=== PATIENT | female | born 1955 | race Caucasian/White ===

== ENCOUNTER 2018-12-07 08:30 | Outpatient (CLI) | payer MEDICARE, BC, SELFPAY ==
[2018-12-07 09:53] LABS: COMMENT (LAB VIEW ONLY) 146.99 mg/dL; Microalb ug/mg Crea 11.3 ug/mg Cr
[2018-12-07 10:15] LABS: ALT 38 U/L (12-78); AST 29 U/L (15-37); Albumin 3.8 g/dL (3.4-5.0); Alkaline Phosphatase 130 U/L (46-116); Anion Gap 12.2 mmol/L (3-11); BUN 33 mg/dL (7-18); Bilirubin, Total 0.4 mg/dL (0.2-1.0); CO2 26.8 mmol/L (21.0-32.0); CREATININE 1.34 mg/dL (0.55-1.02); Calcium 9.7 mg/dL (8.5-10.1); Chloride 101 mmol/L (98-107); Cholesterol 137 mg/dL (50-200); Glucose 172 mg/dL (70-100); HDL Cholesterol 43 mg/dL (40-60); LDL CHOLESTEROL 70 mg/dL (<100); Potassium 4.1 mmol/L (3.5-5.1); Sodium 140 mmol/L (136-145); TSH (W/Ref FT4) 8.04 uIU/mL (0.358-3.74); Total Protein 7.5 g/dL (6.4-8.2); Triglyceride 115 mg/dL (30-150)
[2018-12-07 10:33] LABS: FREE T4 0.96 ng/dL (0.76-1.46)
== END 2018-12-07 08:50 ==
PROVIDERS: PCP Nurse Practitioner Family; Visit Provider Nurse Practitioner Family
DX: E11.9 Type 2 diabetes mellitus without complications (principal); E78.5 Hyperlipidemia, unspecified; E03.9 Hypothyroidism, unspecified
CPT/HCPCS: 36415; 80053; 80061; 83721; 82043; 82570; 83036; 84439; 84443

== ENCOUNTER 2020-05-19 10:17 | Outpatient (REF) | payer MEDICARE, BC, SELFPAY ==
[2020-05-22 10:13] LABS: COMMENT (LAB VIEW ONLY) 166.85 mg/dL; Microalb ug/mg Crea 28.6 ug/mg Cr
== END 2020-05-19 10:37 ==
LOC: LBO 10:17
PROVIDERS: PCP Nurse Practitioner Family; Visit Provider Nurse Practitioner Family
DX: E11.22 Type 2 diabetes mellitus with diabetic chronic kidney disease (principal); Z79.4 Long term (current) use of insulin
CPT/HCPCS: 82043; 82570

== ENCOUNTER 2020-05-26 03:49 | Outpatient (CLI) | payer MEDICARE, BC, SELFPAY ==
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
== END 2020-05-26 04:09 ==
PROVIDERS: PCP Nurse Practitioner Family; Visit Provider Nurse Practitioner Family
DX: M25.562 Pain in left knee (principal); M17.12 Unilateral primary osteoarthritis, left knee; M89.8X5 Other specified disorders of bone, thigh; Z87.828 Personal history of other (healed) physical injury and trauma
CPT/HCPCS: 73562

== ENCOUNTER 2020-05-29 02:23 | Outpatient (CLI) | payer MEDICARE, BC, SELFPAY ==
[2020-05-29 10:12] LABS: ALT 28 U/L (14-59); AST 22 U/L (15-37); Albumin 3.8 g/dL (3.4-5.0); Alkaline Phosphatase 107 U/L (46-116); Anion Gap 10.5 mmol/L (3-11); BUN 26 mg/dL (7-18); Bilirubin, Total 0.4 mg/dL (0.2-1.0); CO2 28.5 mmol/L (21.0-32.0); CREATININE 1.42 mg/dL (0.55-1.02); Calcium 9.4 mg/dL (8.5-10.1); Calculated LDL 72 mg/dL (<100); Chloride 103 mmol/L (98-107); Cholesterol 136 mg/dL (<200); Estimated GFR 37.01 (mL/min/1.73m2); Glucose 106 mg/dL (74-106); HDL Cholesterol 47 mg/dL (40-60); Potassium 4.2 mmol/L (3.5-5.1); Sodium 142 mmol/L (136-145); TSH (W/Ref FT4) 5.18 uIU/mL (0.36-3.74); Triglyceride 88 mg/dL (<150)
[2020-05-29 10:30] LABS: FREE T4 0.88 ng/dL (0.76-1.46)
== END 2020-05-29 02:43 ==
PROVIDERS: PCP Nurse Practitioner Family; Visit Provider Nurse Practitioner Family
DX: E11.22 Type 2 diabetes mellitus with diabetic chronic kidney disease (principal); Z79.4 Long term (current) use of insulin; E03.9 Hypothyroidism, unspecified
CPT/HCPCS: 36415; 80053; 80061; 84439; 84443

== ENCOUNTER 2020-06-07 01:47 | Outpatient (CLI) | payer MEDICARE, BC, SELFPAY ==
--- NOTE | 2020-06-07 06:15 | DI.MRI_ITS ---
EXAM: MR LOWER EXTREMITY LT WO CLINICAL HISTORY: Further eval sclerotic lesion distal femur,M89.9. TECHNIQUE: Multiplanar multisequence MRI was performed. No IV gadolinium was administered due to de creased GFR. COMPARISON: CR XR KNEE LT 3V AP,LAT,SAVANNAH from 05/26/2020 FINDINGS: Plain films show a sclerotic lesion in the medial femoral condyle. On MRI the lesion seen on plain film a is of cortical signal intensity, consistent with a bone island . There is a moderate size joint effusion. There is a small Watkins's cyst. Several loose bodies are no cindy. There are severe degenerative changes of the lateral femoral tibial joint with prominent spurri ng, joint space narrowing and cartilage thinning extending down to bone. The cruciate and collateral ligaments and extensor mechanism appear intact. There degenerative signal changes in the medial men iscus. The lateral meniscus is severely peripherally displaced and not well seen, consistent with se shauna degeneration. IMPRESSION: Sclerotic lesion in the medial femoral condyle is consistent with a bone island. There is severe de generative changes of the medial femoral tibial joint. Loose bodies are noted in the joint effusion. DATA REPOSITORY:
== END 2020-06-07 02:07 ==
PROVIDERS: PCP Nurse Practitioner Family; Visit Provider Nurse Practitioner Family
DX: M89.8X5 Other specified disorders of bone, thigh (principal)
CPT/HCPCS: 73718; 82565

== ENCOUNTER → 2020-06-19 13:22 | Outpatient (BNVA) | payer MEDICARE, BC, SELFPAY | PROVIDERS: PCP Nurse Practitioner Family; Referring Provider Nurse Practitioner Family; Visit Provider Student in an Organized Health Care Education/Training Program | DX: M17.12 Unilateral primary osteoarthritis, left knee (principal); M89.9 Disorder of bone, unspecified; I10 Essential (primary) hypertension; E11.9 Type 2 diabetes mellitus without complications; Z79.4 Long term (current) use of insulin | CPT/HCPCS: 20610; 99203; J1040 ==

== ENCOUNTER 2020-09-28 13:56 | Outpatient (CLI) | payer MEDICARE, BC, SELFPAY ==
--- NOTE | 2020-09-28 13:45 | DI.RAD_ITS ---
EXAM: XR STANDING ALIGNMENT and XR knee LT 1 V CLINICAL HISTORY: pre op TKA. TECHNIQUE: 2D digital imaging was performed. COMPARISON: CR XR KNEE LT 3V AP,LAT,SAVANNAH from 05/26/2020 FINDINGS: The hips are well maintained. The right knee is well maintained. In the left knee, there is joint s pace narrowing and periarticular spurring particularly in the lateral femoral tibial and patellofemor al joints. The sclerotic focus in the medial femoral condyle is unchanged. The ankles are well main tained. No significant leg length discrepancy is noted. The right lower extremity measures 90.6 cm. The left lower extremity measures 90.2 cm. IMPRESSION: 1. Moderately severe degenerative changes in the left knee. 2. No significant leg length discrepancy. DATA REPOSITORY: RADIATION DOSE DELIVERED:
== END 2020-09-28 14:16 ==
PROVIDERS: PCP Nurse Practitioner Family; Referring Provider Nurse Practitioner Family; Visit Provider Physician Assistant
DX: M17.12 Unilateral primary osteoarthritis, left knee (principal)
CPT/HCPCS: 73560; 77073

== ENCOUNTER 2020-10-06 03:38 | Outpatient (CLI) | payer MEDICARE, BC, SELFPAY ==
[2020-10-06 10:29] LABS: HCT 34.4 % (36.0-46.0); MCH 29.3 pg (27.0-33.0); MCV 91.5 fL (80-95); MPV 9.1 fL (8.0-11.0); Platelet Count 332 10^3/uL (130-400); RBC 3.76 10^6/uL (3.93-5.22); RDW 12.8 % (11.7-14.6); RDW-SD 42.5 fL
[2020-10-06 10:36] LABS: Hemoglobin A1C 6.5 % (<5.7)
[2020-10-06 11:31] LABS: Anion Gap 3.3 mmol/L (3-11); BUN 35 mg/dL (7-18); CO2 33.7 mmol/L (21.0-32.0); CREATININE 1.87 mg/dL (0.55-1.02); Calcium 8.8 mg/dL (8.5-10.1); Chloride 104 mmol/L (98-107); Estimated GFR 26.86 (mL/min/1.73m2); Glucose 121 mg/dL (74-106); Potassium 4.1 mmol/L (3.5-5.1); Sodium 141 mmol/L (136-145)
[2020-10-07 12:01] LABS: SARS-CoV-2 RNA Source Nasal/Nares
[2020-10-07 12:02] LABS: SARS-CoV-2 RNA Not Detected (NotDetected)
== END 2020-10-06 03:58 ==
PROVIDERS: PCP Nurse Practitioner Family; Visit Provider Student in an Organized Health Care Education/Training Program
DX: M25.562 Pain in left knee (principal); M17.12 Unilateral primary osteoarthritis, left knee; Z11.59 Encounter for screening for other viral diseases; Z01.818 Encounter for other preprocedural examination; Z01.812 Encounter for preprocedural laboratory examination
CPT/HCPCS: 36415; 80048; 85027; U0003; 83036

== ENCOUNTER 2020-10-11 06:03 | Day surgery (SDC) | payer MEDICARE, BC, SELFPAY ==
[2020-10-11] VITALS (10 sets, daily range): BP systolic 107–166; BP diastolic 55–83; PULSE 64–84; RESP 15–18; TEMP 35.9–36.6; O2SAT 97–99
[2020-10-11] MEDS: Celecoxib 200 MG CAP 400 MG PO (06:31)
[2020-10-11] MEDS: Gabapentin 300 MG CAP PO (06:31)
[2020-10-11] MEDS: Acetaminophen 500 MG TAB 1000 MG PO (06:31)
[2020-10-11] MEDS: Lactated Ringers 1,000 ML 80 ML IV (06:32)
[2020-10-11] MEDS: Bupivacaine 0.25% Pres-Free 30 ML VIAL ×2 (07:37→08:31)
[2020-10-11] MEDS: ceFAZolin 2 GM/50 ML BAG IVPB (07:57)
[2020-10-11] MEDS: Ketorolac 30 MG/ML VIAL (08:33)
[2020-10-11] MEDS: Normal Saline 20 ML VIAL (08:34)
--- NOTE | 2020-10-11 09:55 | DSE_ITS ---
Date of service: 10/11/20 Time of Service: 11:51 DS: Diagnosis Discharge Diagnosis (1) Left knee DJD: Status: Chronic Discharge Plan Disposition Patient Disposition: HOME Condition: Good Discharge Details Reason For Visit: L TKA Admit Date/Time: 10/11/20 06:03 Admit Provider: Milan Maloney Attending Provider: Milan Maloney Primary Care Provider: Nicol Brunner [facility] Course Hospital Course: Lacey was admitted to the day surgery unit following the procedure. The surgery was tolerated well without any notable medical, surgical, or anesthetic complications. Mobilization began postoperatively. She was voiding spontaneously. Vitals were stable. Physical therapy worked with the patient and was cleared for discharge home. No acute medical issues. Pain was controlled on oral regimen. Home Meds and New Rx's Prescriptions: New celecoxib [Celebrex] 200 mg capsule 200 mg PO BID Qty: 60 RF: 0 aspirin 81 mg tablet,delayed release (DR/EC) 81 mg PO BID Qty: 60 RF: 0 acetaminophen [Tylenol Extra Strength] 500 mg tablet 500 mg PO Q6H PRNQty: 90 RF: 0 pantoprazole [Protonix] 40 mg tablet,delayed release (DR/EC) 40 mg PO DAILY Qty: 30 RF: 0 oxycodone 5 mg tablet 5 mg PO Q4H PRNQty: 18 RF: 0 docusate sodium [Colace] 100 mg capsule 100 mg PO BID PRNQty: 10 RF: 0 Continued multivitamin [Daily Vitamin] 1 EACH tablet 1 ea PO DAILY RF: 0 calcium carbonate [Calcium 600] 600 MG tablet 600 mg PO DAILY RF: 0 Lantus Solostar U-100 Insulin 100 unit/mL (3 mL) insulin pen 22 unit Sub-Q QAM Qty: 15 RF: 3 levothyroxine 50 mcg tablet 50 mcg PO DAILY Qty: 90 RF: 3 metformin 1,000 mg tablet 1,000 mg PO BID Qty: 180 RF: 3 atorvastatin 40 mg tablet 40 mg PO DAILY Qty: 90 RF: 3 paroxetine HCl 40 mg tablet 40 mg PO DAILY Qty: 90 RF: 3 Januvia 50 mg tablet 50 mg PO HS RF: 0 lisinopril-hydrochlorothiazide 20-12.5 mg tablet 1 tab PO BID RF: 0 Discontinued aspirin [Aspir-81] 81 MG tablet,delayed release (DR/EC) 81 mg PO DAILY RF: 0 No Action (DME) Blood Glucose Test Strip See Dose Instructions .ROUTE .MEDSUPPLY Qty: 100 RF: 3 (DME) pen needle, diabetic [Pen Needle] 31 gauge x 5/16 needle 1 ea Miscellaneous DAILY Qty: 100 RF: 3 (DME) lancets [OneTouch Delica Lancets] 33 gauge misc 1 ea Miscellaneous DAILY Qty: 100 RF: 3 Discharge Instructions Additional Instructions: Total Knee Discharge Instructions Activity: The most important activity is to walk. You should try to take short walks a few times a day. It is important that when resting you work on keeping the knee straight. Avoid putting a pillow behind the knee as this will encourage flexion. Work on range of motion exercises as provided by Physical Therapy. - Start outpatient physical therapy within 2 weeks. - You should wear the SAMMIE hose on both legs for 2 weeks. Dressing: Keep the surgical dressing in place for at least one week. After the first week it may be removed and replace with light gauze and tape or nothing. It may get wet after 3 days but avoid soaking the dressing. If it gets wet, just lightly pat dry. Medications: - You should take Tylenol and anti-inflammatory Celebrex as your primary pain control medications. If the Celebrex is too expensive or not covered, please call the office for another alternative (Advil/Ibuprofen or Naproxen/Aleve) - You have been prescribed a stronger pain medication Oxycodone for breakthrough pain, take as needed as prescribed. - You have also been prescribed a stomach acid reduction agent Pantoprozole to help reduce stomach acid and reflux. - You will be taking Aspirin 81mg twice a day for DVT prevention unless instructed otherwise. - If you have constipation you should take Colace or Miralax (both [id number]). Colace has been called in. It takes most people 3-4 days to have a bowel movement. Follow-up: 2 weeks If you have any acute concerns or questions, please do not hesitate to contact the office at [phone]. You may contact Dr. Maloney with any questions after hours through the hospital at [phone] or on his cell phone at [phone]. Stand Alone Forms: Anes.Nerve Block Instructions, Press Ganey (DSU) Referrals: Milan Maloney MD [ [facility] STAFF PHYSICIAN] - Activity:: Activity as Tolerated Equipment/Supplies:: Walker Diet:: As Tolerated Discharge Orders Discharge Orders: Discharge Order (Routine); Ordered 10/11/20 Ordered By: Milan Maloney DS: Summary Status at Discharge Functional status at discharge: independent ambulation Overall status at discharge: patient is progressing back to baseline Mental Status: mental status grossly normal Speech and Movement: speech and movement normal Mood: congruent mood Affect: normal affect Exam Psych Mental Status: mental status grossly normal Speech and Movement: speech and movement normal Mood: congruent mood Affect: normal affect DS: Data Vitals/I&O Vitals and I&O: Vital Signs Temperature 36.6 C 10/11/20 06:26 Pulse 84 10/11/20 06:26 Respiratory Rate 18 10/11/20 06:26 Blood Pressure 166/83 H 10/11/20 06:26 Pulse Oximetry 98 10/11/20 06:26 Oxygen Delivery Method Room Air 10/11/20 06:26 Oxygen Flow Rate 0 10/11/20 06:26 Intake & Output 10/10/20 10/10/20 10/11/20 11:59 23:59 11:59 Intake Total 670 / 670 Output Total 100 / 100 Balance 570 / 570 Weight 86.183 kg 87.2 kg Intake: IV 670 / 670 Output: Estimated Blood Loss 100 / 100 [facility] Medical History Adenoma of large intestine (09/29/12) 12/13/15 colo with fragments of tubular adenoma Adult BMI > 30 Anxiety Atypical squamous cells of undetermined significance (ASC-US) on cervical Pap smear (08/23/08) Chronic kidney disease Diabetes mellitus (04/19/13) 03/30/2018 No retinopathy Diabetic neuropathy associated with type 2 diabetes mellitus Essential hypertension (04/19/13) White-coat HTN Heart murmur (08/09/98) systolic Heart murmur, systolic HTN (hypertension) Hyperlipidemia (09/29/12) 11/2018 labs: adequate response in the lipid panel, continue moderate intensity statin therapy Left knee DJD injection: 06/19/20 Postmenopausal LMP ~47 y/o 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 Personal history of malignant neoplasm Brother No problems noted. Brother No problems noted. Social History Smoking/Tobacco Use Status: Never Smoking risk assessment performed?: Yes Alcohol Intake: current Alcohol Intake frequency: holidays/special occasions only Drug use: Never Caregiver/Support person: No Household members: spouse Number of Children: 2 Communication Needs: None current occupation: Retired Current gender identity: female What type of physical activity do you participate in: walking Duration: 45-60 minutes/day Frequency: 1-2 times per week Seatbelt use: always Water heater temp set <120 deg: Yes Working smoke detector in home: Yes Fire extinguisher in home: Yes Carbon monox detector in home: Yes
--- NOTE | 2020-10-11 12:35 | IN_ITS ---
Date of service: 10/11/20 Time of Service: 12:35 PT Notes Visit Reasons: L TKA Physical Therapy Inpatient Initial Evaluation Date: 10/11/2020 Referring Doctor: BRET Mccauley PT Orders: PT CONSULT: Status post Ortho surgery Precautions: Fall. Standard. WBAT on left LE. Patient Profile/Admitting Diagnosis: Lacey is a 65-year-old female with primary unilateral osteoarthritis of the left knee and is status post left total knee arthroplasty on postoperative day 0. PMHX: Medical History Adenoma of large intestine (09/29/12) 12/13/15 colo with fragments of tubular adenoma Adult BMI > 30 Anxiety Atypical squamous cells of undetermined significance (ASC-US) on cervical Pap smear (08/23/08) Chronic kidney disease Diabetes mellitus (04/19/13) 03/30/2018 No retinopathy Diabetic neuropathy associated with type 2 diabetes mellitus Essential hypertension (04/19/13) White-coat HTN Heart murmur (08/09/98) systolic Heart murmur, systolic HTN (hypertension) Hyperlipidemia (09/29/12) 11/2018 labs: adequate response in the lipid panel, continue moderate intensity statin therapy Left knee DJD injection: 06/19/20 Postmenopausal LMP ~47 y/o 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 Independent with all aspects of ADLs without the use of an assistive ambulatory device nor adaptive equipment prior to surgery. Ports no falls in the past 12 months. Equipment Owned/DME: None Subjective: Agreeable to PT consult. Reports no pain in the left knee but did complain of a stretching sensation in the back of the knee during mobility assessment. Denies headache, chest pain, and dizziness throughout consult. Objective: General Observation: Nurse Steffen present throughout session. Nurse Ferris assisted during stairs training. Blu wraps on left LE. Cryo/Cuff on left LE. Anti-thromboembolic pumps on right leg. Mental Status: Alert and oriented x4 Pain: 0/10 in the left knee Vital Signs: Within normal limits as closely monitored by nurse Bourne before during and after PT session ROM: Right Upper Extremity: Shoulder Flexion WFL. Shoulder abduction WFL. Elbow flexion WFL. Wrist flexion WFL. Opening and closing of hand WFL. Left Upper Extremity: Shoulder Flexion WFL. Shoulder abduction WFL. Elbow flexion WFL. Wrist flexion WFL. Opening and closing of hand WFL. Right Lower Extremity: Hip flexion WFL. Hip abduction WFL. Knee flexion WFL. Ankle dorsiflexion WFL. Ankle plantarflexion WFL. Left Lower Extremity: Hip flexion WFL. Hip abduction WFL. Knee flexion 0 to 100 degrees. Ankle dorsiflexion WFL. Ankle plantarflexion WFL. Strength: Right Upper Extremity: Shoulder flexors 5/5. Shoulder abductors 5/5. Elbow flexors 5/5. Elbow extensors 5/5. Fire Investigation Lieutenant strong. Left Upper Extremity: Shoulder flexors 5/5. Shoulder abductors 5/5. Elbow flexors 5/5. Elbow extensors 5/5. Fire Investigation Lieutenant strong. Right Lower Extremity: Hip flexors 5/5. Hip abductors 5/5. Knee flexors 5/5. Knee extensors 5/5. Ankle dorsiflexors 5/5. Ankle plantarflexors 5/5. Left Lower Extremity:Hip flexors 4/5. Hip abductors 4/5. Knee flexors 3-/5. Knee extensors 4-/5. Ankle dorsiflexors 5/5. Ankle plantarflexors 5/5. Sensation: Intact as to pain and pressure on bilateral lower extremities. Bed Mobility/Transfers: Rolling independent Supine to sit independent Sit to supine independent Sit to stand contact-guard assist Stand to sit contact-guard assist Bed to chair standby assist Chair to bed standby assist Gait: Instructed on safe strategies for level surface ambulation of 100 feet + 75 feet using the front wheeled walker with standby assist of PT and distant supervision of nurse Bourne. Step through reciprocal gait pattern. Kiera decreased. Also assisted and verbally cued on safe strategies for stair negotiation of 12 x 4 inch steps while holding onto 1 rail and with contact- guard assist of PT and standby assist of kenya Bourne and Josy. THERA EX: Training provided for correct performance of seated level active range of motion exercises as written in exercise flowsheet to minimize pain, stiffness, and swelling for the first week or so until orthopedic follow-up. Balance: Static Sitting: Normal Dynamic Sitting: Normal Static Standing: Fair fair Dynamic Standing: Special Tests: Mobility Limitations Standardized Measure [facility] AM-PAC 6 clicks Basic Mobility Inpatient Short Form: Raw Score: 23 CMS Score: 11% deficit Informed Consent/Education: Patient instructed in purpose of PT consult and plan of care. Assessment: Lacey requires the use of front wheeled walker to maximize independence and reduce fall risk at home. She goes home today after she is cleared by orthopedic surgeon. She will have the support of her as she recovers. She has good understanding of seated level exercises that she can to initially at home for the first week or so. She will benefit from outpatient PT services in order to facilitate return to premorbid independent level. Patient presents with clinical signs and symptoms consistent with current/admitting diagnoses that have resulted to mobility limitations, gait instability, generalized weakness, and impairment of motor control as demonstrated by the following impairment level findings: 1. Decreased strength to left knee major muscle groups 2. Impaired standing balance 3. Impaired activity tolerance 4. Limitation of joint range of motion in left knee Impairments are contributing to the following functional limitations: 1. Inability to safely ambulate without assistive device 2. Increase completion time for mobility ADL performance 3. Increased fall risk 4. Inability to negotiate steps alone safely Patient is assessed as a [id number] moderate complexity based on the following: History: 65-year-old female with impairment level findings, functional limitations, and past medical history as indicated above Examination: Demonstrable impairment in strength, balance, and mobility level with underlying impairments and functional limitations as documented above Presentation:Evolving Decision Makin moderate complexity Goals: N/A. PT eval and 1 treatment session only for functional mobility training and HEP instruction. Plan of Care/Treatment Plan: N/A. PT eval and 1 treatment session only for functional mobility training and HEP instruction. DISCHARGE RECOMMENDATIONS: Home when medically cleared by orthopedic surgeon. Outpatient PT in 2 weeks in order to facilitate return to premorbid independent level. TREATMENT CODE/TIME: 36946 x 20 minutes, 20607 x 25 minutes beginning at 12:35 PM. Thank you for the opportunity to participate in the care of this patient. Tracee Pizarro PT, DPT, CLT [facility] [place], [place]
--- NOTE | 2020-10-11 14:19 | W.PM.OP ---
Date of service: 10/11/20 Time of Service: 09:37 Operative Note Operative Note DATE OF PROCEDURE: 10/11/20 PRE-OP DIAGNOSIS: Left Knee Osteoarthritis with Valgus Deformity POST-OP DIAGNOSIS: same PROCEDURE: Left Total Knee Replacement with Intraoperative Navigation SURGEON: Milan Maloney DESIGN MAINTENANCE ENGINEER: Chen Dietrich ANESTHESIA: regional and spinal ESTIMATED BLOOD LOSS: 150 PATHOLOGY: none sent TOURNIQUET TIME: 0 COMPLICATIONS: None Patient was transported to: PACU Patient's condition: stable Implants: 1. Depuy Attune Cementless Posterior Stabilized Femoral Component, Size 5 2. Depuy Attune Cementless Rotating Platform Tibial Component, Size 5 3. Depuy Attune 5x7mm CR/PS Poly 4. Depuy Attune Patellar Component, Size 38 Indications: I have seen Lacey in clinic for symptoms of LEFT knee arthritis, confirmed with radiographic findings. Lacey has exhausted nonoperative methods and was having significant limitations in daily function and desired better function and less pain. I discussed the technical details of a knee replacement. I explained the risks of the procedure to include, but not limited to, bleeding, infection, pain, stiffness, fracture, damage to nerves and vessels, damage to muscles and tendons, loosening, need for repeat procedure, blood clot and cardiopulmonary demise. Despite these risks, she elected to proceed. Findings: There was significant signs of arthritis throughout the knee involving all 3 compartments, but worse laterally. Procedure Description: Lacey was greeted in the preoperative holding area where the correct side was identified and marked. The consent was reviewed with the patient and signed. The history and physical was updated. All questions were answered. Preoperative mediacations were administered: Acetaminophen 1000mg, Celebrex 400mg, and Gabapentin 300mg. An adductor canal block was then administered by the anesthesia team in the PACU. She was taken back to the operating room. A spinal anesthestic was then administered. The patient was placed into the supine position on the operating room table. A nonsterile tourniquet was placed high onto the leg. Posts were placed for positioning during the procedure. All bony prominences were well padded. Prophylactic antibiotics in the form of Cefazolin were administered. 1g of Tranxemic Acid was given intravenously within 30 minutes of incision. The left leg was then prepped with Chloraprep and draped in a standard fashion with impervious stockinette. A second prep with Chloraprep was performed prior to application of Iodine impregnated skin protection. A timeout to confirm correct identity, side and site, procedure, allergies, anesthesia, and medical concerns was performed. With the knee in some flexion, a midline incision was made overlying the knee. Full thickness skin flaps were raised once the extensor mechanism was encountered. These were raised medially and laterally. Any bleeding was controlled with electrocautery. Once the extensor mechanism was fully exposed, a medial parapatellar arthrotomy was performed in a flexed position. All bleeding from the arthrotomy and the geniculate arteries was coagulated. A medial subperiosteal peel was performed with electrocautery to the midcoronal plane. The fat pad was removed while keeping the patellar tendon protected. The anterior distal femur synovium was removed for later visualization. The ACL and PCL were resected and the anterior horn of the lateral meniscus was transected. The knee was then flexed with the patella everted. Large osteophytes from the tibia were removed. Large osteophytes from the femur were removed. There was some hypoplasia of the lateral femoral condyle and any remnant cartilage of the medial femoral condyle was removed for appropriate thickness. A single starting pin was then placed 1cm anterior to the PCL insertion and the notch in the direction of the femoral head. The OrthoAlign device was applied over the pin. It was oriented to be in line with the epicondylar axis and the trochlear groove. It was then pinned into place. The navigation computer was then turned on and calibrated. The distal femur cut was set at 0 degrees varus/valgus and 2.5 degrees flexion. The distal femur cutting guide then was positioned for a 9mm cut. The distal femur was cut with an oscillating saw while protecting the soft tissues. The tibia was then addressed. The OrthoAlign device was placed over the tibial tubercle and medial tibia and secured into position. Once again, OrthoAlign was calibrated and then set for a 0 degree varus/valgus cut and 3 degrees of posterior slope. With this locked into position, the cut thickness stylus was used to assess cut thickness. The lateral side, most involved side, was set for a 4mm cut. This was then held in position and pinned into place with 2 additional pins and a cross pin for stability. The medial and lateral collateral ligaments were protected and the cut was performed. With this completed, it was assessed and noted to be of appropriate dimensions. The guide and OrthoAlign was removed. A spacer block was inserted and the knee was brought into extension. The 7mm spacer block provided full extension, without hyperextension and with stability of both the medial and lateral collateral ligaments was assessed. The pins from the femur and the tibia were then removed. The distal femur was then sized. The anterior stylus was placed onto the lateral ridge of the anterior femur. This indicated a size 5 femur. The external rotation of the guide was adjusted to 3 degrees to match the epicondylar axis, perpendicular to Stafford?s line. The 4-in-1 cutting guide was the placed. The posterior medial femur cut was evaluated and appeared of good thickness. The spacer block was inserted underneath the cutting guide and stability was confirmed in 90 degrees of flexion. An kolby wing was used to confirm appropriate position of the anterior cut to avoid notching. This cutting guide was ensured to be flush on the cut surface and then pinned into place with headed pins. While protecting the soft tissues, quad tendon, and collateral ligaments, the anterior and posterior cuts were performed with a saw. The central two pins were removed and the posterior and anterior chamfers were cut next. The notch-cutting guide was placed. This was pinned to lateralize the femoral component as much as possible while keeping it flush on the cut surface. This was then pinned into position. A reciprocating saw was used to make the notch cut. A rasp smoothed the cut surfaces. The medial and lateral menisci were removed. A trial femoral component was then inserted, impacted down to the cut surfaces, and the lug holes were drilled. A provisional trial tibial component was placed and the knee was brought through range of motion. There was noted to be excellent extension and flexion. There was no significant instability. The patella was tracking without thumbs. A size 7mm polyethylene component provided the best range of motion and stability with less than 2mm gapping with medial and lateral stress and full extension without significant hyperextension. The tibial cut surface was fully exposed. The tibia was then sized as a 5. The tibia had been previously marked during trialing to correspond to the center of the tibial component to help with rotation. The trial was aligned to this kenyatta, approximately rotated to the medial 1/3rd of the tibial tubercle. The trial was pinned into place. The tibia was prepared with a reamer and a keel punch and lug holes. The knee was then brought into extension and the patella was measured as 25mm. Using the patellar clamp and cut guide, this was resected to a flat surface with at least 13mm of thickness remaining. The size 38 patella fit the best. This was oriented and then clamped into position. The lugs were drilled. The trial components were removed. The final components were opened on the back table. The periosteal and capsular tissues, especially posteriorly, around the knee were then systematically injected with a periarticular cocktail consisting of 50cc 0.25% Marcaine, 30mg Ketorolac, 20cc of Exparal and 50cc of injectable saline. The knee was thoroughly irrigated with a pulse lavage and dried. Irrisept was also used to irrigate the tissues. On the back table, with the implants opened, the cement was mixed. One batches of high viscosity cement were prepared with vacuum assistance. After the cement was ready a small amount was placed on the cut surface of the patella and the patellar button was clamped into position and held. During this process attention was turned to the gutters of the knee and for all interfaces for any excess cement. While the cement was hardening, the cementless knee components were placed. Starting with the tibial component, the tibia was subluxed anteriorly and the lug holes of the component were lined up. The tibia was then impacted with an impactor and mallet until the tibial component was in contact with the tibia. Then, the femoral component was inserted. The lug holes were aligned and the component was impacted into position. The final polyethylene was inserted. The knee was irrigated with Irrisept chlorhexadine solution. This was allowed to sit in the knee for 3 minutes. After the cement had finally cured, approximately 15min, the clamp was removed from the patella and the knee was taken through range of motion. The patella was tracking with a no-thumbs technique. The capsule was then reapproximated with a No. 1 Vicryl at multiple locations. The capsule was finally closed with a No. 2 Stratafix, barbed suture. The tourniquet was then released and the arthrotomy appeared watertight without significant bleeding. The second dosing of 1g TXA was started. Deep tissues were then reapproximated with 0 Vicryl and 2-0 Vicryl. The skin was closed with a running 3-0 Monocryl in a subcuticular fashion. This was reinforced with skin glue. A Mepilex silver dressing was applied along with a [id number] SCARLETT wrap. A CryoCuff was applied. Lacey was transferred to the hospital bed without difficulty an suffering no apparent complication. Lacey has a good prognosis. Physical therapy will start today and without restrictions, weight-bearing as tolerated. Aspirin 81mg BID will be used for DVT prophylaxis.
== END 2020-10-11 14:04 | disposition home or self-care (01) ==
LOC: PDS 07:42 → DSU 10-13 12:39
PROVIDERS: PCP Nurse Practitioner Family; Visit Provider Student in an Organized Health Care Education/Training Program
PROC: (CPT 27447; principal; 2020-10-11 07:45)
DX: M17.12 Unilateral primary osteoarthritis, left knee (principal); M21.062 Valgus deformity, not elsewhere classified, left knee; Z96.652 Presence of left artificial knee joint; G89.18 Other acute postprocedural pain; E11.9 Type 2 diabetes mellitus without complications; I10 Essential (primary) hypertension
CPT/HCPCS: 27447; 20985; C1776; 76942; 97162; 97530; NC; J0690; J1885; J2250; J2405

== ENCOUNTER 2020-10-26 09:10 | Outpatient (CLI) | payer MEDICARE, BC, SELFPAY ==
--- NOTE | 2020-10-26 08:45 | DI.RAD_ITS ---
EXAM: XR STANDING ALIGNMENT CLINICAL HISTORY: 1ST POST OP L TKA. TECHNIQUE: 2D digital imaging was performed. COMPARISON: 09/28/2020 FINDINGS: There has been interval surgery with placement of a left knee prosthesis. This appears satisfactory. Minimal degenerative changes in the opposite-right knee noted. Hips appear unremarkable with the e xception of a calcific density lateral to the greater trochanter of the left hip consistent with calc ific bursitis/tendinitis. Ankles appear unremarkable. IMPRESSION: Left knee prosthesis. Calcific tendinitis-left hip. DATA REPOSITORY: RADIATION DOSE DELIVERED:
--- NOTE | 2020-10-26 08:45 | DI.RAD_ITS ---
EXAM: XR KNEE LT 1V CLINICAL HISTORY: 1st post po L TKA. TECHNIQUE: 2D digital imaging was performed. COMPARISON: MR MR LOWER EXTREMITY LT WO from 06/07/2020 CR XR KNEE LT 1V from 09/28/2020 FINDINGS: Single lateral view of the left knee compared to 09 28 There is been interval arthroplasty plus resurfacing of the patella. On this single view there appea rs to be satisfactory position of the components of the prosthesis with no fracture or loosening evid ent. Sclerotic bone density is noted at the level of the distal femoral metaphysis which is unchange d from the prior study in shown to have benign appearance on MRI scan 06/07/2020 (bone island). IMPRESSION: Satisfactory appearance DATA REPOSITORY: RADIATION DOSE DELIVERED:
== END 2020-10-26 09:30 ==
PROVIDERS: PCP Nurse Practitioner Family; Referring Provider Nurse Practitioner Family; Visit Provider Physician Assistant Surgical
DX: Z96.652 Presence of left artificial knee joint (principal); M65.28 Calcific tendinitis, other site
CPT/HCPCS: 73560; 77073

== ENCOUNTER → 2020-11-23 11:01 | Outpatient (BNVA) | payer MEDICARE, BC, SELFPAY | PROVIDERS: PCP Nurse Practitioner Family; Referring Provider Nurse Practitioner Family; Visit Provider Student in an Organized Health Care Education/Training Program | DX: Z96.652 Presence of left artificial knee joint (principal); Z47.1 Aftercare following joint replacement surgery ==

== ENCOUNTER → 2021-01-04 09:36 | Outpatient (BNVA) | payer MEDICARE, BC, SELFPAY | PROVIDERS: PCP Nurse Practitioner Family; Referring Provider Nurse Practitioner Family; Visit Provider Student in an Organized Health Care Education/Training Program | DX: Z47.1 Aftercare following joint replacement surgery (principal); Z96.652 Presence of left artificial knee joint ==

== ENCOUNTER 2021-05-21 03:27 | Outpatient (CLI) | payer MEDICARE, BC, SELFPAY ==
[2021-05-21 08:35] LABS: Abs Immature Grans 0.04 10^3/uL (0.0-0.06); Absolute Basophil Count 0.06 10^3/uL (0.0-0.2); Absolute Eosinophil Count 0.32 10^3/uL (0.0-0.7); Absolute Lymphocyte Count 1.76 10^3/uL (1.2-3.4); Absolute Monocyte Count 0.74 10^3/uL (0.1-0.8); Absolute Neutrophil Count 5.98 10^3/uL (1.2-6.7); Basophils % 0.7; Eosinophils % 3.6; HCT 37.6 % (36.0-46.0); HGB 12.2 g/dL (11.2-15.7); Immature Grans % 0.4; Lymphocytes % 19.8; MCH 30.6 pg (27.0-33.0); MCHC 32.4 % (32.0-36.0); MCV 94.2 fL (80-95); Monocytes % 8.3; Neutrophils % 67.2; Nucleated RBC 0 %; Platelet Count 369 10^3/uL (130-400); RBC 3.99 10^6/uL (3.93-5.22); RDW 12.7 % (11.7-14.6); RDW-SD 43.8 fL
[2021-05-21 09:57] LABS: ALT 26 U/L (14-59); AST 17 U/L (15-37); Albumin 4.3 g/dL (3.4-5.0); Alkaline Phosphatase 106 U/L (46-116); Anion Gap 13.2 mmol/L (3-11); BUN 37 mg/dL (7-18); Bilirubin, Total 0.4 mg/dL (0.2-1.0); CO2 27.8 mmol/L (21.0-32.0); CREATININE 2.3 mg/dL (0.55-1.02); Calcium 9.8 mg/dL (8.5-10.1); Chloride 102 mmol/L (98-107); Estimated GFR 21.15 (mL/min/1.73m2); Glucose 133 mg/dL (74-106); Potassium 3.6 mmol/L (3.5-5.1); Sodium 143 mmol/L (136-145); TSH (W/Ref FT4) 4.67 uIU/mL (0.36-3.74); Total Protein 7.7 g/dL (6.4-8.2)
[2021-05-21 10:21] LABS: FREE T4 1.03 ng/dL (0.76-1.46)
[2021-05-21 12:14] LABS: COMMENT (LAB VIEW ONLY) 195.74 mg/dL; Microalb ug/mg Crea 7.3 ug/mg Cr
[2021-05-21 12:33] LABS: Calculated LDL 57 mg/dL (<100); Cholesterol 129 mg/dL (<200); HDL Cholesterol 54 mg/dL (40-60); Triglyceride 93 mg/dL (<150)
== END 2021-05-21 03:28 | disposition home or self-care (01) ==
LOC: LBO 03:27
PROVIDERS: PCP Nurse Practitioner Family; Visit Provider Nurse Practitioner Family
DX: E11.22 Type 2 diabetes mellitus with diabetic chronic kidney disease (principal); E78.5 Hyperlipidemia, unspecified; E03.9 Hypothyroidism, unspecified; N18.30 Chronic kidney disease, stage 3 unspecified; I10 Essential (primary) hypertension; Z79.4 Long term (current) use of insulin
CPT/HCPCS: 36415; 80053; 80061; 82043; 82570; 84439; 84443; 85025

== ENCOUNTER 2021-06-13 03:32 | Outpatient (CLI) | payer MEDICARE, BC, SELFPAY ==
[2021-06-13 12:54] LABS: Bilirubin Negative (Negative); Blood Negative (Negative); Clarity Clear (Clear); Glucose Negative (Negative); Ketones Negative (Negative); Leukocyte Esterase Small (Negative); Nitrite Negative (Negative); Urobilinogen 0.2 EU/dL (Up TO 0.2); pH 5.5 (5-8)
[2021-06-13 13:05] LABS: Bacteria Few HPF (Negative); C & S Indicated? Yes; Casts Negative LPF (Negative); Crystals Negative HPF (Negative); Epithelial Cells Few HPF (Negative); Mucus Trace (Negative); Other Cells Few Renal (Negative); RBC Negative HPF (0-2); WBC 20-50 HPF (0-5)
== END 2021-06-13 03:33 | disposition home or self-care (01) ==
LOC: LBO 03:33
PROVIDERS: PCP Nurse Practitioner Family; Visit Provider Nurse Practitioner Family
DX: N18.4 Chronic kidney disease, stage 4 (severe) (principal); R82.998 Other abnormal findings in urine
CPT/HCPCS: 81003; 81015; 87086

== ENCOUNTER 2021-06-25 02:01 | Outpatient (CLI) | payer MEDICARE, BC, SELFPAY ==
--- NOTE | 2021-06-25 07:00 | DI.US_ITS ---
Exam(s) US RENAL EXAM: US RENAL CLINICAL HISTORY: recent significant worsening of CKD,N18.9 TECHNIQUE: Ultrasound of both kidneys performed using standard protocol. COMPARISON: US US OR ANESTHESIA from 10/11/2020 FINDINGS: RIGHT KIDNEY: Measures 10.3 cm in length. No cysts evident. Normal cortical thickness and corticomedullary differen tiation .No solid masses No intrarenal calculi nor hydronephrosis. LEFT KIDNEY: Measures 9.1 cm in length. No cysts evident. Normal cortical thickness and corticomedullary differen tiaion. No solids masses. No intrarenal calculi nor hydonephrosis. URINARY BLADDER: Not studied as the bladder was empty. IMPRESSION: 1. No significant ultrasound findings in the kidneys. 2. Urinary bladder was not studied because the patient apparently presented with an empty bladder. DATA REPOSITORY:
== END 2021-06-25 02:21 ==
PROVIDERS: PCP Nurse Practitioner Family; Visit Provider Nurse Practitioner Family
DX: N18.9 Chronic kidney disease, unspecified (principal)
CPT/HCPCS: 76770

== ENCOUNTER 2021-07-02 03:04 | Outpatient (CLI) | payer MEDICARE, BC, SELFPAY ==
[2021-07-02 09:29] LABS: Anion Gap 9.8 mmol/L (3-11); BUN 20 mg/dL (7-18); CO2 28.2 mmol/L (21.0-32.0); CREATININE 1.7 mg/dL (0.55-1.02); Calcium 9.5 mg/dL (8.5-10.1); Chloride 106 mmol/L (98-107); Estimated GFR 29.98 (mL/min/1.73m2); Glucose 133 mg/dL (74-106); Potassium 4.7 mmol/L (3.5-5.1); Sodium 144 mmol/L (136-145)
== END 2021-07-02 03:05 | disposition home or self-care (01) ==
LOC: LBO 03:04
PROVIDERS: PCP Nurse Practitioner Family; Visit Provider Nurse Practitioner Family
DX: N18.4 Chronic kidney disease, stage 4 (severe) (principal)
CPT/HCPCS: 36415; 80048

== ENCOUNTER → 2021-08-02 09:27 | Outpatient (BNVA) | payer MEDICARE, BC, SELFPAY | PROVIDERS: PCP Nurse Practitioner Family; Referring Provider Nurse Practitioner Family; Visit Provider Physical Therapy Assistant | DX: Z12.11 Encounter for screening for malignant neoplasm of colon (principal); Z86.010 Personal history of colon polyps; E11.9 Type 2 diabetes mellitus without complications; I10 Essential (primary) hypertension ==

== ENCOUNTER 2021-08-20 01:36 | Outpatient (CLI) | payer MEDICARE, BC, SELFPAY ==
[2021-08-20 12:34] LABS: Source Nasal/Nares
[2021-08-20 18:07] LABS: COVID-19 PCR Negative (Negative)
== END 2021-08-20 01:37 | disposition home or self-care (01) ==
LOC: LBO 01:36
PROVIDERS: PCP Nurse Practitioner Family; Visit Provider Surgery
DX: Z20.822 Contact with and (suspected) exposure to COVID-19 (principal); Z01.818 Encounter for other preprocedural examination
CPT/HCPCS: 87635

== ENCOUNTER 2021-08-21 06:08 | Day surgery (SDC) | payer MEDICARE, BC, SELFPAY ==
--- NOTE | 2021-08-20 22:05 | COLE_ITS ---
Colonoscopy Report Date of procedure: 08/20/21 Pre-op diagnosis general: A. polyps Surgeon: Olga Torres Anesthesia Type: General:No Airway Disposition: same day Prep: Miralax/Dulcolax Procedure Description: After informed consent was obtained the patient was taken to the procedure room and placed in a left decubitous position. Monitors were applied and a time out was done. The patients name, date of , procedure, allergies to medications and metal in their body was reviewed. The patient was then sedated. Once sedated and comfortable a rectal exam was done. External exam was normal. Internal exam revealed a normal sphincter tone and no palpable masses. The prostate []. The scope was then introduced and retrofelexed. [] internal hemorrhoids were identified. The scope was then advanced to the cecum [] difficulty. The TI and appendiceal orifice were identified. The prep was []. The scope was then slowly retracted over [] minutes back into the rectum. Polyps were removed at []. The scope was removed and the patient was woken up and taken back to Same day surgery in stable condition. The patient tolerated the procedure well and there were no immediate complicati ons. Follow up: The patient should follow up in [] years unless they develop changes in bowel habits or other new gastrointestinal complaints.
--- NOTE | 2021-08-20 22:07 | PDOC.DSDIS_ITS ---
Discharge Plan Discharge Details Attending Provider: Delmi Garvey Primary Care Provider: Nicol Brunner Home Meds and New Rx's Prescriptions: No Action (DME) lancets [OneTouch Delica Lancets] 33 gauge misc 1 ea Miscellaneous DAILY Qty: 100 RF: 3 acetaminophen [Tylenol Extra Strength] 500 mg tablet 1,000 mg PO QID MDD 4000mg PRN (Reason: pain) Qty: 120 RF: 0 paroxetine HCl 40 mg tablet 40 mg PO DAILY Qty: 90 RF: 3 lisinopril 40 mg tablet 40 mg PO DAILY Qty: 90 RF: 3 Januvia 25 mg tablet 25 mg PO DAILY Qty: 90 RF: 3 aspirin [Adult Aspirin Regimen] 81 mg tablet,delayed release (DR/EC) 81 mg PO DAILY RF: 0 bisacodyl [Dulcolax (bisacodyl)] 5 mg tablet,delayed release (DR/EC) 5 mg PO ONCE Qty: 4 RF: 0 polyethylene glycol 3350 17 gram/dose powder 238 g PO ONCE Qty: 238 RF: 0 amlodipine 10 mg tablet 10 mg PO DAILY Qty: 90 RF: 3 Lantus Solostar U-100 Insulin 100 unit/mL (3 mL) insulin pen 28 unit Sub-Q QAM RF: 0 multivitamin [Daily Vitamin] 1 EACH tablet 1 ea PO DAILY RF: 0 calcium carbonate [Calcium 600] 600 MG tablet 600 mg PO DAILY RF: 0 atorvastatin 40 mg tablet 40 mg PO DAILY Qty: 90 RF: 3 (DME) pen needle, diabetic [Pen Needle] 31 gauge x 5/16 needle 1 ea Miscellaneous DAILY Qty: 100 RF: 3 levothyroxine 50 mcg tablet 50 mcg PO DAILY Qty: 90 RF: 3 (DME) OneTouch Ultra Test Strip See Rx Instructions .ROUTE .MEDSUPPLY Qty: 100 RF: 3 Discharge Instructions Additional Instructions: DSU Colonoscopy Post- Op Instructions Instructions for Everyone who is given Anesthesia: For your safety, please do the following for the next twenty-four (24) hours: *Do Not operate a motor vehicle (car, truck, motorcycle, etc.) *Do Not drink alcoholic beverages or use any recreational drugs for the first 24 hours or while taking pain medications. The medications in your body may have a reaction that can be dangerous. *Do Not make any important decisions or sign any important papers. Findings: Follow up: 1. No lifting over 20 pounds or strenuous activity for the first 24 hours after your procedure. After 24 hours there are no restrictions on your activity but you may feel fatigued for a few days. 2. After you arrive home you may have a light meal and return to your normal diet as you can tolerate it without feeling sick to your stomach. 3. You may have a bloated, gaseous feeling in your belly (abdomen) after a colonoscopy. Passing gas and belching will help. Walking or lying down on your left side with your knees flexed may relieve the discomfort. Call the office at [phone] (Office) or [phone] (Hospital) right away if you notice any of the following: a.Vomiting of blood or ?coffee ground stools?. b.Rectal bleeding 1Tbsp, blood clots or continuous bleeding. c.Severe belly (abdominal) pain. d.A hard distended belly (abdomen) and an inability to pass gas. 4. Please don?t expect to have a normal BM (bowel movement) for 2-3 days after your procedure. 5. If there are questions regarding the findings of your procedure, please contact your doctor 6. If you are unable to contact your doctor with a problem, contact the hospital at [phone]. 7. Continue all your regular medications unless directed otherwise. I understand the above instructions and have no questions. Signature of Patient or Adult Escort Name of Responsible Adult Escort Signature of Nurse Date/Time
[2021-08-21 06:32] VITALS: BP 152/62; PULSE 85; RESP 16; TEMP 36.7; O2SAT 98
--- NOTE | 2021-08-21 06:36 | W.COLOREPORT ---
Colonoscopy Report Date of procedure: 08/21/21 Pre-op diagnosis general: Hx of polyps Post-op diagnosis procedure note: same (polyps) Procedure: Colonoscopy with polypectomy Surgeon: Delmi Garvey Anesthesia Type: General:No Airway (Alberto Fishman CRNA) Estimated blood loss (mL): 3 Pathology: other (Ascending colon polyp x2, Transverse polyp) Complications: None Disposition: same day Indications: The patient is here for Colonoscopy pre-op. Her last screening was in 2016, which was remarkable for tubular adenomatous polyp.She has no family history of colon cancer. She has not had any bowel habit changes. -Discussed colonoscopy bowel prep as well as the procedure. Discussed possible complications of the procedure to include bleeding, pain, perforation, missed small lesion/polyp, sore throat, aspiration and adverse reaction to the medications. Questions were answered to patient?s satisfaction. No guarantees were implied or given. Prep: Miralax/Dulcolax Procedure Start Time: 07:28 Procedure End Time: 07:52 Retraction Time: 16 minutes Findings: 3 small polyps Procedure Description: After informed consent was obtained the patient was taken to the procedure room and placed in a left decubitous position. Monitors were applied and a time out was done. The patients name, date of , procedure, allergies to medications and metal in their body was reviewed. The patient was then sedated. Once sedated and comfortable a rectal exam was done. External exam was normal. Internal exam revealed a normal sphincter tone and no palpable masses. The scope was then introduced and retro-flexed. Grade 1 internal hemorrhoids, polyps or masses were identified on retro-flexion. The scope was then advanced to the cecum without difficulty. The ileocecal valve and appendiceal orifice were identified. The prep was good. The scope was then slowly retracted over 16 minutes back into the rectum. Polyps were removed with cold forceps in the ascending colon x2, transverse colon. There was no diverticulosis noted. The scope was removed and the patient was woken up and taken back to Same day surgery in stable condition. The patient tolerated the procedure well and there were no immediate complications. Follow up: The patient should follow up in 5 years unless they develop changes in bowel habits or other new gastrointestinal complaints.
--- NOTE | 2021-08-21 06:38 | W.PM.DSUDISC ---
Discharge Plan Disposition Patient Disposition: HOME Condition: Good Discharge Details Reason For Visit: Colonoscopy Attending Provider: Delmi Garvey Primary Care Provider: Nicol Brunner Home Meds and New Rx's Prescriptions: Continued (DME) lancets [OneTouch Delica Lancets] 33 gauge misc 1 ea Miscellaneous DAILY Qty: 100 RF: 3 acetaminophen [Tylenol Extra Strength] 500 mg tablet 1,000 mg PO QID MDD 4000mg PRN (Reason: pain) Qty: 120 RF: 0 paroxetine HCl 40 mg tablet 40 mg PO DAILY Qty: 90 RF: 3 lisinopril 40 mg tablet 40 mg PO DAILY Qty: 90 RF: 3 Januvia 25 mg tablet 25 mg PO DAILY Qty: 90 RF: 3 aspirin [Adult Aspirin Regimen] 81 mg tablet,delayed release (DR/EC) 81 mg PO DAILY RF: 0 amlodipine 10 mg tablet 10 mg PO DAILY Qty: 90 RF: 3 Lantus Solostar U-100 Insulin 100 unit/mL (3 mL) insulin pen 28 unit Sub-Q QAM RF: 0 multivitamin [Daily Vitamin] 1 EACH tablet 1 ea PO DAILY RF: 0 calcium carbonate [Calcium 600] 600 MG tablet 600 mg PO DAILY RF: 0 atorvastatin 40 mg tablet 40 mg PO DAILY Qty: 90 RF: 3 (DME) pen needle, diabetic [Pen Needle] 31 gauge x 5/16 needle 1 ea Miscellaneous DAILY Qty: 100 RF: 3 levothyroxine 50 mcg tablet 50 mcg PO DAILY Qty: 90 RF: 3 (DME) OneTouch Ultra Test Strip See Rx Instructions .ROUTE .MEDSUPPLY Qty: 100 RF: 3 Discontinued bisacodyl [Dulcolax (bisacodyl)] 5 mg tablet,delayed release (DR/EC) 5 mg PO ONCE Qty: 4 RF: 0 polyethylene glycol 3350 17 gram/dose powder 238 g PO ONCE Qty: 238 RF: 0 Discharge Instructions Instructions: Colorectal Polyps (DC) Additional Instructions: Findings: 3 polyps Follow up: 5 years Please call if you develop: fevers >101.5 Nausea or Vomiting Abdominal pain that is not transient Rectal bleeding that is more then a tbsp A hard abdomen and inability to pass gas DAY SURGERY UNIT POST ENDOSCOPY INSTRUCTIONS Instructions for everyone who is given Anesthesia: For your safety, please do the following for the next 24 Hours: a. Do not drive or operate dangerous equipment b. Do not drink alcohol beverages or use any recreational drugs for the first 24 hours or while taking pain medications. The medications in your body may have a reaction that can be dangerous. c. Do not make any important decisions or sign any important papers 1. Generally there are no restrictions on your activity after a day or so has gone by, but you may feel a bit fatigued for a few days. 2. After you arrive home you may have a light meal and return to a normal diet as you can tolerate it without feeling sick to your stomach. 3. After surgery, you may feel pain or discomfort. This should be only transient, but if it persists please contact your doctor. 4. If there are any questions regarding the findings of your procedure, please feel free to contact your doctor. 6. If you are unable to contact your doctor with a problem, contact the hospital at [phone]. 7. Continue all your regular medications unless directed otherwise. I understand the above instructions and have no questions. Signature of Patient or Responsible Adult Escort Date/Time Name of Responsible Adult Escort Signature of Nurse Date/Time Activity:: Activity as Tolerated Diet:: As Tolerated Discharge Orders Discharge Orders: Discharge Order (Routine); Ordered 08/21/21 Ordered By: Delmi Garvey
[2021-08-21] MEDS: Lactated Ringers 1,000 ML 80 ML IV (06:49)
--- NOTE | 2021-08-21 07:08 | W.ANESPRE ---
General Info Date of Service Date Performed: 08/21/21 Height: 5 ft 5 in Weight: 86.8 kg Body Mass Index (BMI): 31.8 Surgical Procedure: Operation Date: 08/21/21 07:35 Proposed Procedures Side Surgeon p Colonoscopy Delmi Garvey MD Actual Procedures Side Surgeon p Colonoscopy Not Applicable Delmi Garvey MD Meds Allergies and Home Medications Allergies Allergy/AdvReac Type Severity Reaction Status Date / Time latex AdvReac Mild Itching Unverified 08/21/21 06:31 Home Medication Medication Instructions Recorded calcium carbonate [Calcium 600] 600 mg PO DAILY 03/01/13 multivitamin [Daily Vitamin] 1 ea PO DAILY 03/01/13 lancets 33 gauge #100 ea 10/22/19 atorvastatin 40 mg tablet 40 mg PO DAILY #90 tab-cap 07/31/20 acetaminophen 500 mg tablet 1,000 mg PO QID PRN #120 tab MDD 10/26/20 4000mg pen needle, diabetic 31 gauge x #100 ndl 05/03/2103/25 levothyroxine 50 mcg tablet 50 mcg PO DAILY #90 tab-cap 05/28/21 lisinopril 40 mg tablet 40 mg PO DAILY #90 tab-cap 06/06/21 paroxetine HCl 40 mg tablet 40 mg PO DAILY #90 tab-cap 06/06/21 sitagliptin 25 mg tablet 25 mg PO DAILY #90 tab 06/06/21 blood sugar diagnostic #100 ea 06/15/21 amlodipine 10 mg tablet 10 mg PO DAILY #90 tab-cap 07/04/21 insulin glargine 100 unit/mL (3 28 unit SUB-Q QAM ml 07/04/21 mL) subcutaneous pen aspirin 81 mg tablet,delayed 81 mg PO DAILY 08/02/21 release bisacodyl 5 mg tablet,delayed 5 mg PO ONCE #4 tab 08/02/21 release polyethylene glycol 3350 17 238 g PO ONCE #238 g 08/02/21 gram/dose oral powder Current Visit Medications: Current Medications Generic Name Dose Route Start Last Admin Trade Name Freq PRN Reason Stop Dose Admin Hyoscyamine Sulfate 0.125 mg 08/21/21 06:39 Hyoscyamine 0.125 Mg Sl/Oral/Chew SL DIRECTED PRN Ringer's Solution 1,000 mls @ 80 mls/hr 08/21/21 06:00 08/21/21 06:49 IV 11/10/21 23:59 80 mls/hr INFUSION KOSTA Administration IV Miscellaneous Supplies 1 each 08/21/21 06:00 Iv Access IV 09/19/21 23:59 DIRECTED KSOTA Ondansetron HCl 4 mg 08/21/21 06:39 Ondansetron 4 Mg/2 Ml Vial IVP Q4H PRN PRN Nausea / Vomiting Sodium Chloride 0 ml 08/21/21 06:00 Normal Saline Flush 10 Ml Syr IV 09/19/21 23:59 PRN PRN Sodium Chloride 0 ml 08/21/21 06:00 Normal Saline 10 Ml Vial IJ 09/19/21 23:59 DIRECTED PRN Sterile Water 0 ml 08/21/21 06:00 Water,Injection,Sterile 10 Ml Vial IJ 09/19/21 23:59 DIRECTED PRN PFSH Active Problems Active Problems: Problem Status Onset Code Lesion of femur M89.9 Diabetic neuropathy associated with type 2 diabetes mellitus E11.40 Anxiety Subclinical hypothyroidism 11/26/13 E03.9 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, optical expressions Subclinical hypothyroidism (11/26/13) 2012: Stable; annual monitoring; 2015: Started on tx Tubular adenoma of colon Surgical History Surgical History History of colonoscopy History of total left knee replacement (10/11/20) Tobacco Smoking/Tobacco Use Status: Never Alcohol Alcohol Intake: current Alcohol intake frequency: holidays/special occasions only Substance Use Substance use: Never Substance use type: does not use Vital Signs and Lab Results Vital Signs Most Recent Vital Signs in EMR: Most Recent Vital Signs Temp Pulse Resp BP Pulse Ox 36.7 C 85 16 152/62 H 98 08/21/21 06:32 08/21/21 06:32 08/21/21 06:32 08/21/21 06:32 08/21/21 06:32 Point of Care Results Point of Care Results: Finger Stick Blood Glucose 120 08/21/21 06:45 Lab Results Blood Type / Crossmatch: No Data to Display Complete Blood Count: No Data to Display Complete Metabolic Panel: No Data to Display Liver Function Panel: No Data to Display Coagulation Panel: No Data to Display Cardiac Panel: No Data to Display Arterial Blood Gas: No Data to Display Venous Blood Gas: No Data to Display Pancreas Panel: No Data to Display Thyroid Panel: No Data to Display Infectious Disease: Coronavirus (COVID-19)(PCR) Negative (Negative) 08/20/21 09:49 08/20/21 Coronavirus 2019 Source Nasal/Nares 08/20/21 09:49 08/20/21 Blood Cultures: No Data to Display Toxicology Panel: No Data to Display Anesthesia Assessment and Plan Anesthesia History Personal History: No History of Anesthesia Complications Family History: No Family History of Anesthesia Complications Exercise Tolerance Exercise Tolerance: Metabolic Equivalents>4 Pertinent Negatives Pertinent Negatives: No Symptoms of GERD, No Major Cardiovascular Symptoms or Complaints, No Major Pulmonary Symptoms or Complaints and No History of CVA/TIA Cardiac & Pulmonary Exam Cardiac Exam: Normal S1/S2 Heart Sounds and Known Innocent Murmur Pulmonary Exam: Clear Bilateral Breath Sounds Airway Exam Known Difficult Airway: No Mallampati Class: 3 Mouth Opening: Normal (> 3cm) Thyromental Distance: Greater than 3 cm Neck Range of Motion: Full ROM Neck Circumference: Normal Teeth Condition: Normal Dentition Airway Comments: Broken tooth ?in the back? #11 & #21 crowns Broken tooth ?in back ? ASA Classification ASA Score: ASA 2 Emergency Case?: No NPO Status NPO Status: NPO Clears >2 hours, Solids >8 hours Anesthesia Plan Resuscitation Status: Full Code Anesthesia Technique: General Anesthesia Airway Planned: Natural Airway Monitors Used: Standard Monitors
[2021-08-21 07:13] VITALS: BMI 31.8
--- NOTE | 2021-08-21 07:38 | BOWEL_PTH ---
PATIENT: Lacey Caldera LOC: [facility] U#:[id number] AGE/SX: 66/F ROOM: RE08/21/[address]: Delmi Garvey MD : [id number] BED: DIS: 08/21/2021 SPEC #: [id number] RECD: 08/21/21 12:45 STATUS: EULA REQ #: [id number] ELLEN: 08/21/21 07:[address]: Delmi Garvey DEPT: Surgical Specimen RECD BY: Jade Riley ENTERED: 08/21/21 12:46 SP TYPE: Bowel OTHR DR: Nicol Brunner, RICHARD Tissues: 1 - BIOPSY BOWEL 2 - BIOPSY BOWEL Procedures: GROSS AND MICRO LEVEL 4 Comments: [id number]
--- NOTE | 2021-08-21 08:04 | W.ANESPOSTOP ---
Postoperative Evaluation Date, Time and Location Date Performed: 08/21/21 Time Performed: 08:05 Patient Location: Day Surgery Unit Vital Signs Most Recent Imported Vital Signs: Most Recent Vital Signs Temp Pulse Resp BP Pulse Ox 36.7 C 85 16 152/62 H 98 08/21/21 06:32 08/21/21 06:32 08/21/21 06:32 08/21/21 06:32 08/21/21 06:32 Most Recent Manually Entered Vital Signs: Adult Blood Pressure: 121/53 Heart Rate: 76 Respirations: 12 Oxygen Saturation (%): 99 Temperature (C): 36.2 C Pain Score (0-10 Scale): 0 Pain Score Most Recent Pain Score: Most Recent Pain Score Pain Level 0 08/21/21 06:32 Assessment Mental Status: Awake (Alert & Oriented to Patient Baseline) Airway and Respiratory Function: Patent airway with normal (patient baseline) respiratory exam Cardiovascular Function: Hemodynamically Stable Hydration Status: Adequately Hydrated Nausea & Vomiting: No Nausea or Vomiting Pain: Pt. Denies Any Pain Peripheral Nerve Block: Patient did not receive a nerve block
[2021-08-21 08:05] VITALS: BP 121/53; PULSE 76; RESP 12; RESP 16; TEMP 36.2; TEMPC 36.2; O2SAT 99
[2021-08-21 08:33] VITALS: BP 166/67; PULSE 73; RESP 16; TEMP 36.3; O2SAT 100
== END 2021-08-21 08:54 | disposition home or self-care (01) ==
PROVIDERS: PCP Nurse Practitioner Family; Visit Provider Surgery
PROC: 0DJD8ZZ Inspection of Lower Intestinal Tract, Via Natural or Artificial Opening Endoscopic (ICD-10-PCS; CPT 45378; principal; 2021-08-21 07:30)
DX: Z12.11 Encounter for screening for malignant neoplasm of colon (principal); Z86.010 Personal history of colon polyps; D12.2 Benign neoplasm of ascending colon; E11.40 Type 2 diabetes mellitus with diabetic neuropathy, unspecified; D12.3 Benign neoplasm of transverse colon
CPT/HCPCS: 45380; 88305; J2001

== ENCOUNTER 2022-03-05 05:57 | Outpatient (CLI) | payer MEDICARE, BC, SELFPAY ==
[2022-03-05 08:20] LABS: HCT 35.1 % (36.0-46.0); HGB 10.9 g/dL (11.2-15.7); MCH 28.5 pg (27.0-33.0); MCHC 31.1 % (32.0-36.0); MCV 91.9 fL (80-95); MPV 9.4 fL (8.0-11.0); Platelet Count 329 10^3/uL (130-400); RBC 3.82 10^6/uL (3.93-5.22); RDW 12.8 % (11.7-14.6); RDW-SD 42.8 fL; WBC 10.18 10^3/uL (4.4-10.8)
[2022-03-05 09:32] LABS: ALT 24 U/L (14-59); AST 15 U/L (15-37); Albumin 3.7 g/dL (3.4-5.0); Alkaline Phosphatase 179 U/L (46-116); Anion Gap 9.7 mmol/L (3-11); BUN 31 mg/dL (7-18); Bilirubin, Total 0.4 mg/dL (0.2-1.0); CO2 26.3 mmol/L (21.0-32.0); CREATININE 1.7 mg/dL (0.55-1.02); Calcium 8.7 mg/dL (8.5-10.1); Chloride 106 mmol/L (98-107); Estimated GFR 29.89 (mL/min/1.73m2); Glucose 145 mg/dL (74-106); Potassium 4.2 mmol/L (3.5-5.1); Sodium 142 mmol/L (136-145); TSH (W/Ref FT4) 3.53 uIU/mL (0.36-3.74); Total Protein 7.1 g/dL (6.4-8.2)
== END 2022-03-05 05:58 | disposition home or self-care (01) ==
LOC: LBO 05:58
PROVIDERS: PCP Nurse Practitioner; Visit Provider Nurse Practitioner
DX: E11.22 Type 2 diabetes mellitus with diabetic chronic kidney disease (principal); E78.5 Hyperlipidemia, unspecified; I10 Essential (primary) hypertension; N18.4 Chronic kidney disease, stage 4 (severe); Z79.4 Long term (current) use of insulin
CPT/HCPCS: 36415; 80053; 85027; 84443

== ENCOUNTER 2022-08-13 02:03 | Outpatient (CLI) | payer MEDICARE, BC, SELFPAY ==
[2022-08-13 09:02] LABS: HCT 38.8 % (36.0-46.0); HGB 12.7 g/dL (11.2-15.7); MCH 29.7 pg (27.0-33.0); MCHC 32.7 % (32.0-36.0); MCV 91 fL (80-95); MPV 9.6 fL (8.0-11.0); Platelet Count 350 10^3/uL (130-400); RBC 4.28 10^6/uL (3.93-5.22); RDW 13.1 % (11.7-14.6); RDW-SD 43.2 fL; WBC 9.09 10^3/uL (4.4-10.8)
[2022-08-13 09:26] LABS: ALT 28 U/L (14-59); AST 23 U/L (15-37); Albumin 3.9 g/dL (3.4-5.0); Alkaline Phosphatase 141 U/L (46-116); Anion Gap 11.6 mmol/L (3-11); BUN 36 mg/dL (7-18); Bilirubin, Total 0.4 mg/dL (0.2-1.0); CO2 26.4 mmol/L (21.0-32.0); CREATININE 2.2 mg/dL (0.55-1.02); Calcium 9.5 mg/dL (8.5-10.1); Calculated LDL 82 mg/dL (<100); Chloride 103 mmol/L (98-107); Cholesterol 159 mg/dL (<200); Estimated GFR 23.68 (mL/min/1.73m2); Glucose 130 mg/dL (74-106); HDL Cholesterol 57 mg/dL (40-60); Potassium 3.6 mmol/L (3.5-5.1); Sodium 141 mmol/L (136-145); Total Protein 8.1 g/dL (6.4-8.2); Triglyceride 103 mg/dL (<150)
== END 2022-08-13 02:04 | disposition home or self-care (01) ==
LOC: LBO 02:03
PROVIDERS: PCP Nurse Practitioner; Visit Provider Nurse Practitioner
DX: I10 Essential (primary) hypertension (principal); E78.5 Hyperlipidemia, unspecified; E11.9 Type 2 diabetes mellitus without complications; Z79.4 Long term (current) use of insulin
CPT/HCPCS: 36415; 80053; 80061; 85027

== ENCOUNTER 2022-12-02 02:50 | Outpatient (CLI) | payer MEDICARE, BC, SELFPAY ==
[2022-12-02 11:07] LABS: Abs Immature Grans 0.04 10^3/uL (0.0-0.06); Absolute Basophil Count 0.12 10^3/uL (0.0-0.2); Absolute Eosinophil Count 0.25 10^3/uL (0.0-0.7); Absolute Lymphocyte Count 1.34 10^3/uL (1.2-3.4); Absolute Monocyte Count 0.79 10^3/uL (0.1-0.8); Absolute Neutrophil Count 7.26 10^3/uL (1.2-6.7); Basophils % 1.2; Eosinophils % 2.6; HCT 41.3 % (36.0-46.0); HGB 13.1 g/dL (11.2-15.7); Immature Grans % 0.4; Lymphocytes % 13.7; MCH 29.4 pg (27.0-33.0); MCHC 31.7 % (32.0-36.0); MCV 93 fL (80-95); MPV 9.1 fL (8.0-11.0); Monocytes % 8.1; Platelet Count 381 10^3/uL (130-400); RBC 4.46 10^6/uL (3.93-5.22); RDW 12.9 % (11.7-14.6); RDW-SD 43.8 fL
[2022-12-02 11:53] LABS: COMMENT (LAB VIEW ONLY) 75.66 mg/dL; PROTEIN 14.2 mg/dL; Prot/Crea Ur Ratio 0.18
[2022-12-02 11:55] LABS: Albumin 4.1 g/dL (3.4-5.0); Anion Gap 10.2 mmol/L (3-11); BUN 41 mg/dL (7-18); CO2 28.8 mmol/L (21.0-32.0); CREATININE 2.3 mg/dL (0.55-1.02); Calcium 9.8 mg/dL (8.5-10.1); Chloride 101 mmol/L (98-107); Estimated GFR 22.45 (mL/min/1.73m2); Glucose 180 mg/dL (74-106); Potassium 3.8 mmol/L (3.5-5.1); Sodium 140 mmol/L (136-145)
[2022-12-02 11:59] LABS: COMMENT (LAB VIEW ONLY) 72.91 mg/dL; Microalb ug/mg Crea 36.6 ug/mg Cr
[2022-12-02 12:24] LABS: Vitamin D 25 Total 28.5 ng/mL (30-100)
== END 2022-12-02 02:51 | disposition home or self-care (01) ==
PROVIDERS: PCP Nurse Practitioner; Visit Provider Internal Medicine Nephrology
DX: I12.9 Hypertensive chronic kidney disease with stage 1 through stage 4 chronic kidney disease, or unspecified chronic kidney disease (principal); N18.4 Chronic kidney disease, stage 4 (severe); D63.1 Anemia in chronic kidney disease; E55.9 Vitamin D deficiency, unspecified; N25.81 Secondary hyperparathyroidism of renal origin
CPT/HCPCS: 36415; 80048; 82306; 82040; 82043; 82565; 82570; 84156; 85025

== ENCOUNTER 2023-10-27 10:26 | Outpatient (REF) | payer MEDICARE, BC, SELFPAY ==
[2023-10-16 16:04] LABS: Abs Immature Grans 0.04 10^3/uL (0.0-0.06); Absolute Basophil Count 0.09 10^3/uL (0.0-0.2); Absolute Lymphocyte Count 0.92 10^3/uL (1.2-3.4); Absolute Monocyte Count 0.68 10^3/uL (0.1-0.8); Absolute Neutrophil Count 7.76 10^3/uL (1.2-6.7); Basophils % 0.9; Eosinophils % 2.1; HCT 38.2 % (36.0-46.0); HGB 12.2 g/dL (11.2-15.7); Immature Grans % 0.4; Lymphocytes % 9.5; MCH 29.8 pg (27.0-33.0); MCHC 31.9 % (32.0-36.0); MCV 93 fL (80-95); MPV 9.3 fL (8.0-11.0); Neutrophils % 80.1; Platelet Count 456 10^3/uL (130-400); RDW 12.6 % (11.7-14.6); RDW-SD 43.1 fL; WBC 9.69 10^3/uL (4.4-10.8)
[2023-10-16 16:43] LABS: Anion Gap 9.3 mmol/L (3-11); BUN 44 mg/dL (7-18); CO2 27.7 mmol/L (21.0-32.0); CREATININE 2.6 mg/dL (0.55-1.02); Calcium 9.4 mg/dL (8.5-10.1); Chloride 100 mmol/L (98-107); Estimated GFR 19.26 (mL/min/1.73m2); Glucose 272 mg/dL (74-106); Potassium 4.3 mmol/L (3.5-5.1); Sodium 137 mmol/L (136-145); Uric Acid 9.8 mg/dL (2.6-6.0)
== END 2023-10-27 10:27 | disposition home or self-care (01) ==
LOC: LBN 10:26
PROVIDERS: PCP Nurse Practitioner; Visit Provider Nurse Practitioner Adult Health
DX: M10.9 Gout, unspecified (principal); M79.672 Pain in left foot; N18.4 Chronic kidney disease, stage 4 (severe); E11.9 Type 2 diabetes mellitus without complications; R26.89 Other abnormalities of gait and mobility
CPT/HCPCS: 80048; 84550; 85025

== ENCOUNTER 2025-07-13 14:59 | Outpatient (CLI) | payer MEDICARE, BC, SELFPAY ==
[2025-07-13 09:15] LABS: Calculated LDL 63 mg/dL (<100); Cholesterol 127 mg/dL (<200); HDL Cholesterol 48 mg/dL (>or=50); TSH (W/Ref FT4) 5.16 uIU/mL (0.36-3.74); Triglyceride 81 mg/dL (<150)
== END 2025-07-13 15:00 | disposition home or self-care (01) ==
LOC: LBO 14:59
PROVIDERS: PCP Nurse Practitioner; Visit Provider Nurse Practitioner Family
DX: E03.9 Hypothyroidism, unspecified (principal); E78.5 Hyperlipidemia, unspecified
CPT/HCPCS: 36415; 80061; 84439; 84443

== ENCOUNTER 2025-09-20 12:35 | Outpatient (CLI) | payer MEDICARE, BC, SELFPAY ==
[2025-09-20 13:29] LABS: TSH 3.15 uIU/mL (0.55-4.78)
== END 2025-09-20 12:36 | disposition home or self-care (01) ==
LOC: LBO 12:36
PROVIDERS: PCP Nurse Practitioner; Visit Provider Nurse Practitioner Family
DX: E03.9 Hypothyroidism, unspecified (principal)
CPT/HCPCS: 36415; 84443